=== PATIENT | male | born 1975 | race African-American/Black ===

== ENCOUNTER 2016-04-14 06:15 | Inpatient (IN) | payer MEDICAID, OTHER ==
[~2016-04-14] VITALS: Ht 186.7 cm; Wt 96.9 kg
[2016-04-14 07:16] LABS: Hematocrit 40.3 % (41.0-53.0); Hemoglobin 13.5 g/dL (13.5-17.5); Mean Corpuscular Hemoglobin 33.5 pg (28.0-32.0); Mean Corpuscular Hgb Conc. 33.4 g/dL (32.0-36.0); Mean Corpuscular Volume 100.4 fL (80.0-100.0); Mean Platelet Volume 8.9 fL (7.4-10.4); Platelet Count (auto) 225 10^3/uL (140-450); Red Cell Distribution Width 13.9 % (11.6-16.0); SUSPECT VIEW TRANSMISSION; White Blood Cell 12.5 10^3/uL (4.4-10.8)
[2016-04-14 07:35] LABS: Metamyelocytes % 0; Myelocytes % 0; Promyelocytes % 0; Reactive Lymphocytes 0
[2016-04-14 07:40] LABS: Albumin 3.1 g/dL (3.4-5.0); BUN/Creatinine Ratio 9.2; Bilirubin, Total 0.6 mg/dL (0.2-1.0); Calcium 8.7 mg/dL (8.5-10.1); Potassium 3.5 mmol/L (3.5-5.1); Total Protein 6.9 g/dL (6.4-8.2)
[2016-04-14] MEDS ORDERED: ACETAMINOPHEN 325 MG TAB PO ONE ×2 (07:58→08:00)
[2016-04-14] MEDS ORDERED: AZITHROMYCIN 250 MG TAB PO ONE (08:00)
[2016-04-14] MEDS ORDERED: cefTRIAXone 1GM/50ML D5W 50 ML IV ONE (08:00)
[2016-04-14] MEDS ORDERED: SODIUM CHLORIDE 0.9% 1,000 ML IV ONE (08:00)
[2016-04-14 08:32] LABS: Platelet Estimate Adequate; RBC Morphology Normal
[2016-04-14 10:02] LABS: B-Type Natriuretic Peptide 260.45 pg/mL (0-100)
[2016-04-14 10:03] LABS: Temperature: 22.7 C (20.0-25.0)
[2016-04-14] MEDS ORDERED: hydrALAZINE HCL 20 MG/ML VL IV ONE (10:15)
[2016-04-14] MEDS ORDERED: ACETAMINOPHEN 500 MG TAB PO PRN (11:00)
[2016-04-14] MEDS ORDERED: ALBUTEROL SULF 2.5 MG/0.5ML(0.5%) NEB SOLN NEB PRN (11:00)
[2016-04-14] MEDS ORDERED: TEMAZEPAM 15 MG CAP PO PRN (11:00)
[2016-04-14] MEDS ORDERED: PROMETHAZINE HCL 25 MG/ML 1ML IV PRN (11:00)
[2016-04-14] MEDS ORDERED: LACTULOSE 20Gm/30ML SOLN PO PRN ×2 (11:00)
[2016-04-14] MEDS ORDERED: NITROGLYCERIN 0.4 MG SL TAB SL PRN (11:00)
[2016-04-14] MEDS ORDERED: DEXTROSE (50%) 50ML SYRG IV PRN (11:00)
[2016-04-14] MEDS ORDERED: MORPHINE SULF INJ 2 MG/ML SYRINGE 1ML IV PRN ×2 (11:00)
[2016-04-14] MEDS ORDERED: OSELTAMIVIR 75 MG CAP PO ONE (11:00)
[2016-04-14] MEDS ORDERED: LORazepam 0.5 MG TAB PO PRN (11:00)
[2016-04-14] MEDS ORDERED: NORPTMEDS EX (11:10)
[2016-04-14] MEDS: POTASSIUM CHL 20 Meq TABLET PO SCH (11:36)
[2016-04-14] MEDS: ASPirin 81 mg TAB PO SCH (11:36)
[2016-04-14] MEDS: FUROSEMIDE 40 MG/4 ML VIAL IV SCH (11:36)
[2016-04-14] MEDS: CARVEDILOL 3.125 MG TAB PO SCH ×2 (11:36→23:00)
[2016-04-14] MEDS: NITROGLYCERIN 0.2MG/HR TOPICAL PATCH TD SCH (11:37)
[2016-04-14] MEDS: ENALAPRIL MALEATE 2.5 MG TAB PO SCH (11:37)
[2016-04-14] MEDS: ACCU-CHEK COMFORT CURVE STRIP VI SCH ×2 (11:42→18:26)
[2016-04-14] MEDS: IPRATROPIUM BROM 0.5 MG/2.5ML INH SOL NEB SCH ×2 (11:44→17:41)
[2016-04-14] MEDS: ALBUTEROL SULF 2.5 MG/0.5ML(0.5%) NEB SOLN NEB SCH ×2 (11:45→17:41)
[2016-04-14] MEDS: ENALAPRILAT 1.25 MG/ML-1ML VIAL IV ONE ×2 (12:58→13:49)
[2016-04-14] MEDS: ENALAPRILAT 1.25 MG/ML-1ML VIAL IV PRN ×2 (12:58→20:13)
[2016-04-14 13:56] LABS: Urine RBC None Seen /hpf (0 - 3)
[2016-04-14] MEDS: SODIUM CHLOR 0.9% PF (SALINE LOCK) 10ML VIAL IV SCH ×2 (14:05→22:56)
[2016-04-14 14:10] LABS: Urine Bilirubin Negative (Negative); Urine Blood Negative /uL (Negative); Urine Color Colorless (Yellow); Urine Glucose Normal (Normal); Urine Ketone Negative (Negative); Urine Nitrite Negative (Negative); Urine Urobilinogen Normal (Negative)
[2016-04-14 17:14] VITALS: BP 159/103
[2016-04-14 19:54] VITALS: BP 161/107
[2016-04-14 20:00] VITALS: BP 193/123
[2016-04-14] MEDS: HYDROcodone-ACET 5/325MG TAB PO PRN (20:12)
[2016-04-14] MEDS ORDERED: OSELTAMIVIR 75 MG CAP PO SCH (22:00)
[2016-04-15] VITALS: BP 160/114
[2016-04-15] MEDS: ALBUTEROL SULF 2.5 MG/0.5ML(0.5%) NEB SOLN NEB SCH ×4 (00:28→19:09)
[2016-04-15] MEDS: IPRATROPIUM BROM 0.5 MG/2.5ML INH SOL NEB SCH ×4 (00:28→19:09)
[2016-04-15] MEDS: ENALAPRILAT 1.25 MG/ML-1ML VIAL IV PRN ×2 (02:01→05:36)
[2016-04-15 04:00] VITALS: BP 156/108
[2016-04-15 05:12] LABS: Basophils # (auto) 0 uL; Basophils % (auto) 0.1 % (0.0-2.0); Eosinophils # (auto) 0 uL; Eosinophils % (auto) 0.5 % (0.0-7.0); Hematocrit 42.4 % (41.0-53.0); Lymphocytes % (auto) 10.2 % (10.0-50.0); Mean Corpuscular Hemoglobin 33.1 pg (28.0-32.0); Mean Corpuscular Hgb Conc. 32.9 g/dL (32.0-36.0); Mean Corpuscular Volume 100.5 fL (80.0-100.0); Mean Platelet Volume 9.2 fL (7.4-10.4); Monocytes # (auto) 0.6 uL; Monocytes % (auto) 6.2 % (0.0-12.0); Neutrophils # (auto) 7.9 uL; Platelet Count (auto) 245 10^3/uL (140-450); Red Cell Distribution Width 13.6 % (11.6-16.0); White Blood Cell 9.5 10^3/uL (4.4-10.8)
[2016-04-15 05:39] LABS: Albumin 2.8 g/dL (3.4-5.0); BUN/Creatinine Ratio 9.9; Bilirubin, Total 0.7 mg/dL (0.2-1.0); Calcium 8.9 mg/dL (8.5-10.1); Potassium 3.4 mmol/L (3.5-5.1); Total Protein 6.7 g/dL (6.4-8.2)
[2016-04-15] MEDS: HYDROcodone-ACET 5/325MG TAB PO PRN ×2 (05:43→19:46)
[2016-04-15] MEDS ORDERED: methylPREDNISolone SOD SUCC 40 MG/ML VL ONE (05:53)
[2016-04-15] MEDS ORDERED: methylPREDNISolone SOD SUCC 125 MG/2 ML VL IV ONE (06:00)
[2016-04-15] MEDS: ACCU-CHEK COMFORT CURVE STRIP VI SCH ×3 (06:00→11:41)
[2016-04-15] MEDS ORDERED: diphenhdrAMINE HCL 50 MG/1 ML VL ONE (06:07)
[2016-04-15] MEDS ORDERED: EPINEPHrine HCL 1 MG/1 ML AMP SC ONE (06:09)
[2016-04-15] MEDS ORDERED: diphenhdrAMINE HCL 50 MG/1 ML VL IM ONE (06:09)
[2016-04-15] MEDS ORDERED: EPINEPHrine HCL 1 MG/10 ML SYRG ONE (06:13)
[2016-04-15 06:23] LABS: B-Type Natriuretic Peptide 294.53 pg/mL (0-100); Temperature: 21.2 C (20.0-25.0)
[2016-04-15] MEDS: SODIUM CHLOR 0.9% PF (SALINE LOCK) 10ML VIAL IV SCH ×3 (06:51→21:37)
[2016-04-15 08:00] VITALS: BP 152/119
[2016-04-15] MEDS: cefTRIAXone 1GM/50ML D5W 50 ML IV SCH (08:56)
[2016-04-15] MEDS: FUROSEMIDE 40 MG/4 ML VIAL IV SCH (09:56)
[2016-04-15] MEDS: ASPirin 81 mg TAB PO SCH (09:56)
[2016-04-15] MEDS: AZITHROMYCIN 500MG/D5W 250ML 250 ML IV SCH (09:56)
[2016-04-15] MEDS: POTASSIUM CHL 20 Meq TABLET PO SCH (09:57)
[2016-04-15] MEDS: CARVEDILOL 3.125 MG TAB PO SCH (09:57)
[2016-04-15] MEDS: ENALAPRIL MALEATE 2.5 MG TAB PO SCH (09:57)
[2016-04-15] MEDS: NITROGLYCERIN 0.2MG/HR TOPICAL PATCH TD SCH (10:14)
[2016-04-15 12:00] VITALS: BP 140/103
[2016-04-15] MEDS ORDERED: HCTZ 25 MG TAB PO ONE (14:30)
[2016-04-15] MEDS ORDERED: POTASSIUM CHL 20 Meq TABLET PO ONE (14:30)
[2016-04-15 15:59] VITALS: BP 150/103
[2016-04-15] MEDS: CARVEDILOL 12.5 MG TAB PO SCH (21:36)
[2016-04-15] MEDS: hydrALAZINE HCL 25 MG TAB PO SCH (21:37)
[2016-04-15 22:00] VITALS: BP 150/105
[2016-04-16] MEDS: ALBUTEROL SULF 2.5 MG/0.5ML(0.5%) NEB SOLN NEB SCH ×4 (00:48→20:20)
[2016-04-16] MEDS: IPRATROPIUM BROM 0.5 MG/2.5ML INH SOL NEB SCH ×4 (00:48→20:17)
[2016-04-16 04:30] VITALS: BP 131/77
[2016-04-16 05:00] VITALS: BP 118/50
[2016-04-16 05:26] LABS: Basophils # (auto) 0 uL; Basophils % (auto) 0.1 % (0.0-2.0); Eosinophils # (auto) 0 uL; Hemoglobin 13.8 g/dL (13.5-17.5); Lymphocytes # (auto) 0.9 uL; Lymphocytes % (auto) 6.3 % (10.0-50.0); Mean Corpuscular Hemoglobin 33.4 pg (28.0-32.0); Mean Corpuscular Hgb Conc. 32.9 g/dL (32.0-36.0); Mean Corpuscular Volume 101.3 fL (80.0-100.0); Mean Platelet Volume 9.2 fL (7.4-10.4); Monocytes # (auto) 0.9 uL; Monocytes % (auto) 6.1 % (0.0-12.0); Neutrophils # (auto) 12.8 uL; Neutrophils % (auto) 87.5 % (37.0-80.0); Platelet Count (auto) 306 10^3/uL (140-450); Red Cell Distribution Width 13.7 % (11.6-16.0); White Blood Cell 14.6 10^3/uL (4.4-10.8)
[2016-04-16] MEDS: hydrALAZINE HCL 25 MG TAB PO SCH ×3 (05:36→21:45)
[2016-04-16] MEDS: SODIUM CHLOR 0.9% PF (SALINE LOCK) 10ML VIAL IV SCH ×3 (05:36→21:44)
[2016-04-16 05:38] LABS: Calcium 9.1 mg/dL (8.5-10.1); Magnesium 2.4 mg/dL (1.6-2.6); Potassium 4.1 mmol/L (3.5-5.1)
[2016-04-16 05:42] LABS: BUN/Creatinine Ratio 19.4
[2016-04-16 09:00] VITALS: BP 140/95
[2016-04-16] MEDS: cefTRIAXone 1GM/50ML D5W 50 ML IV SCH (09:06)
[2016-04-16] MEDS: ASPirin 81 mg TAB PO SCH (09:06)
[2016-04-16] MEDS: AZITHROMYCIN 500MG/D5W 250ML 250 ML IV SCH (09:07)
[2016-04-16] MEDS: CARVEDILOL 12.5 MG TAB PO SCH ×2 (09:07→21:45)
[2016-04-16] MEDS: HCTZ 25 MG TAB PO SCH (09:07)
[2016-04-16 13:00] VITALS: BP 124/90
[2016-04-16 17:00] VITALS: BP 111/85
[2016-04-16] MEDS: HYDROcodone-ACET 5/325MG TAB PO PRN (19:35)
[2016-04-16 22:00] VITALS: BP_SYST 109; BP_SYST 146; BP_DIAS 71; BP_DIAS 74
[2016-04-16] MEDS ORDERED: ATORVASTATIN 20 MG TAB PO SCH (22:00)
[2016-04-17] MEDS: IPRATROPIUM BROM 0.5 MG/2.5ML INH SOL NEB SCH ×3 (00:03→13:16)
[2016-04-17] MEDS: ALBUTEROL SULF 2.5 MG/0.5ML(0.5%) NEB SOLN NEB SCH ×3 (00:03→13:16)
[2016-04-17 00:28] VITALS: BP 146/74
[2016-04-17 05:00] VITALS: BP 121/85
[2016-04-17] MEDS: hydrALAZINE HCL 25 MG TAB PO SCH (05:40)
[2016-04-17] MEDS: SODIUM CHLOR 0.9% PF (SALINE LOCK) 10ML VIAL IV SCH (05:41)
[2016-04-17 06:28] LABS: Basophils # (auto) 0 uL; Basophils % (auto) 0.4 % (0.0-2.0); Eosinophils # (auto) 0.1 uL; Eosinophils % (auto) 0.8 % (0.0-7.0); Hematocrit 40.4 % (41.0-53.0); Hemoglobin 13.4 g/dL (13.5-17.5); Lymphocytes # (auto) 1.4 uL; Lymphocytes % (auto) 19.8 % (10.0-50.0); Mean Corpuscular Hemoglobin 33.4 pg (28.0-32.0); Mean Corpuscular Hgb Conc. 33.2 g/dL (32.0-36.0); Mean Corpuscular Volume 100.7 fL (80.0-100.0); Mean Platelet Volume 9.1 fL (7.4-10.4); Monocytes # (auto) 0.6 uL; Neutrophils # (auto) 5.1 uL; Platelet Count (auto) 344 10^3/uL (140-450); Red Cell Distribution Width 13.6 % (11.6-16.0); White Blood Cell 7.2 10^3/uL (4.4-10.8)
[2016-04-17 06:40] LABS: BUN/Creatinine Ratio 22.8; Calcium 8.6 mg/dL (8.5-10.1); Potassium 3.7 mmol/L (3.5-5.1)
[2016-04-17] MEDS: HYDROcodone-ACET 5/325MG TAB PO PRN (08:08)
[2016-04-17] MEDS: cefTRIAXone 1GM/50ML D5W 50 ML IV SCH (08:16)
[2016-04-17 09:00] VITALS: BP 128/92
[2016-04-17] MEDS: ASPirin 81 mg TAB PO SCH (09:19)
[2016-04-17] MEDS: AZITHROMYCIN 500MG/D5W 250ML 250 ML IV SCH (09:19)
[2016-04-17] MEDS: HCTZ 25 MG TAB PO SCH (09:20)
[2016-04-17] MEDS: CARVEDILOL 12.5 MG TAB PO SCH (09:20)
[2016-04-17] MEDS ORDERED: SACC250C PO (12:11)
[2016-04-17] MEDS ORDERED: HYDR-2651 PO (12:11)
[2016-04-17] MEDS ORDERED: LEVO750T3 PO (12:11)
[2016-04-17] MEDS ORDERED: ATOR20TA50 PO (12:11)
[2016-04-17] MEDS ORDERED: CAR125T PO (12:11)
[2016-04-17] MEDS ORDERED: ISOS30TA4 PO (12:11)
[2016-04-17] MEDS ORDERED: ASPI81CH43 PO (12:11)
[2016-04-17] MEDS ORDERED: FURO40TA PO (12:12)
[2016-04-17] MEDS ORDERED: POTA20TA53 PO (12:12)
[2016-04-17 13:00] VITALS: BP 110/77
[2016-04-17 13:22] VITALS: BP 110/77
== END 2016-04-17 14:33 | disposition home or self-care (01) | DRG 720 ==
LOC: EDBD 06:15 → ER 06:15 → TELE 06:16 → DOU IN ICU 17:03 → TELE-CENTR 04-15 17:18
PROVIDERS: ADMIT Internal Medicine; ATTEND Internal Medicine
DX: A41.9 Sepsis, unspecified organism (principal); I50.41 Acute combined systolic (congestive) and diastolic (congestive) heart failure; I42.0 Dilated cardiomyopathy; J18.9 Pneumonia, unspecified organism; E66.01 Morbid (severe) obesity due to excess calories; I11.0 Hypertensive heart disease with heart failure; I42.6 Alcoholic cardiomyopathy; F10.10 Alcohol abuse, uncomplicated; E78.5 Hyperlipidemia, unspecified; Z71.41 Alcohol abuse counseling and surveillance of alcoholic; Z68.27 Body mass index [BMI] 27.0-27.9, adult; Z88.8 Allergy status to other drugs, medicaments and biological substances; Z79.899 Other long term (current) drug therapy; Z79.82 Long term (current) use of aspirin
CPT/HCPCS: 36415; 71020; 78452; 80048; 80053; 80061; 81001; 82550; 82962; 83036; 83605; 83735; 83880; 84443; 84484; 85007; 85025; 85027; 85049; 85379; 87040; 87070; 87081; 87205; 87400; 93005; 93017; 93306; 94640; 96365; 96375; G0434; J0171; J0696

== ENCOUNTER → 2016-04-22 | Outpatient (CLI) | payer MEDICAID ==
[~2016-04-22] MED LIST: ASPI81CH43 PO; ATOR20TA50 PO; CAR125T PO; FURO40TA PO; HYDR-2651 PO; ISOS30TA4 PO; LEVO750T3 PO; NORPTMEDS EX; POTA20TA53 PO; SACC250C PO
[2016-04-22 14:33] LABS: BUN/Creatinine Ratio 13.3; Calcium 9.8 mg/dL (8.5-10.1)
== END | disposition home or self-care (01) ==
LOC: LAB 11:47
PROVIDERS: ATTEND Internal Medicine
DX: J18.9 Pneumonia, unspecified organism (principal)
CPT/HCPCS: 36415; 80048